=== PATIENT | male | born 1965 | race Caucasian/White ===

== ENCOUNTER 2020-09-27 04:54 | Day surgery (SDC) | payer OTHER ==
[2020-09-26 10:48] VITALS: BMI 34.0
[2020-09-27 11:45] VITALS: TEMP 97.5
[2020-09-27 12:22] VITALS: BP 104/62; PULSE 63
== END 2020-09-27 12:40 | disposition home or self-care (01) ==
LOC: JASU-ENDO 04:54
PROVIDERS: ATTEND Internal Medicine Gastroenterology
PROC: 0DB78ZX Excision of Stomach, Pylorus, Via Natural or Artificial Opening Endoscopic, Diagnostic (ICD-10-PCS; 2020-09-27)
PROC: 0DB98ZX Excision of Duodenum, Via Natural or Artificial Opening Endoscopic, Diagnostic (ICD-10-PCS; principal; 2020-09-27 10:30)
DX: K29.70 Gastritis, unspecified, without bleeding (principal); K44.9 Diaphragmatic hernia without obstruction or gangrene; I85.00 Esophageal varices without bleeding
CPT/HCPCS: 88305-TC; 88342-TC